=== PATIENT | female | born 1965 | race Caucasian/White ===

== ENCOUNTER → 2020-10-17 16:21 | Outpatient (CLI) | payer OTHER, SELFPAY ==
[2020-10-17 18:29] LABS: ALB/GLOB Ratio 0.7 RATIO (0.9-2.4); AST(SGOT) 54 U/L (15-37); Alanine Aminotransfer ALT/SGPT 25 U/L (13-56); Albumin, Serum 3.5 g/dL (3.2-5.0); Alkaline Phosphatase 170 U/L (45-117); Anion Gap 6 (5-15); BUN 11 mg/dL (7-18); Calcium,Total 9.3 mg/dL (8.5-10.1); Chloride 102 mmol/L (98-107); Creatinine, Serum 0.78 mg/dL (0.55-1.02); EST Glomerular Filtration Rate 80 mL/min (>60); Est Glom Filt Rate - Afr Amer 97 mL/min (>60); Globulin 4.8 g/dL (2.2-4.2); Glucose 146 mg/dL (74-106); Potassium 3.4 mmol/L (3.5-5.1); Protein, Total 8.3 g/dL (6.4-8.2); Sodium Level 139 mmol/L (136-145)
[2020-10-18 11:22] LABS: Hepatitis B Surface Antigen Non-Reactive (Nonreactive); Hepatitis C Antibody Non-Reactive (Nonreactive)
[2020-10-19 11:02] LABS: Ceruloplasmin 33.5 mg/dL (19.0-39.0)
[2020-10-19 16:08] LABS: ANTINUCLEAR ANTIBODIES DIRECT Negative (Negative)
[2020-10-19 17:06] LABS: Alpha Antitrypsin Serum 158 mg/dL (101-187); Anti-Mitochondrial AB 22.1 Units (0.0-20.0)
== END ==
PROVIDERS: PCP Family Medicine; Referring Provider Internal Medicine Gastroenterology; Visit Provider Internal Medicine Gastroenterology
DX: K72.90 Hepatic failure, unspecified without coma (principal); K76.0 Fatty (change of) liver, not elsewhere classified; K75.9 Inflammatory liver disease, unspecified
CPT/HCPCS: 36415; 80053; 82103; 82390; 83516; 86038; 86803; 87340

== ENCOUNTER → 2020-10-25 09:41 | Outpatient (CLI) | payer OTHER, SELFPAY ==
[2020-10-29 09:51] LABS: Anti-Mitochondrial AB <20.0 Units (0.0-20.0)
[2020-10-29 12:07] LABS: Albumin 3.3 g/dL (2.9-4.4); Alpha-1-Globulins 0.3 g/dL (0.0-0.4); Alpha-2-Globulins 0.9 g/dL (0.4-1.0); Gamma Globulin 1.1 g/dL (0.4-1.8); Immunoglobulin A 538 mg/dL (87-352); Immunoglobulin G 1255 mg/dL (586-1602); Immunoglobulin M 70 mg/dL (26-217)
== END ==
PROVIDERS: PCP Family Medicine; Referring Provider Internal Medicine Gastroenterology; Visit Provider Internal Medicine Gastroenterology
DX: K76.0 Fatty (change of) liver, not elsewhere classified (principal); K75.9 Inflammatory liver disease, unspecified
CPT/HCPCS: 36415; 82784; 83516; 84165; 86334

== ENCOUNTER → 2020-11-14 07:37 | Outpatient (CLI) | payer OTHER, SELFPAY ==
--- NOTE | 2020-11-14 07:40 | US_ITS ---
STUDY: ABDOMINAL ULTRASOUND - RIGHT UPPER QUADRANT REASON FOR VISIT: Female, 55 years old fatty liver TECHNIQUE: Ultrasound evaluation of the right upper quadrant was performed with real-time and static crawley-scale imaging. TECHNICAL QUALITY: Adequate. COMPARISON: None. FINDINGS: Liver: The liver measures 16.6 cm. There is increased echogenicity consistent with fatty infiltration. The bile ducts are within normal limits. There is hepatic color flow. The direction of portal flow is hepatopetal. There is no demonstrated mass lesion. Gallbladder: The patient is status post cholecystectomy. Common Bile Duct (C.B.D.): The common bile duct measures 5 mm. Pancreas: Normal size of the head, body and tail of the pancreas. There is normal echogenicity of the pancreas. There is no demonstrated pancreatic mass or cyst. Right Kidney: Normal size of the right kidney. The right kidney measures 10 cm x 6.3 cm x 4.2 cm. Normal renal cortex. The right cortex measures 1.2 cm. There is no demonstrated renal mass or cyst. There is no right hydronephrosis. IMPRESSION: Diffuse fatty infiltration of the liver. Status post cholecystectomy. Electronically Signed: Oscar Ramos, at 9:56 EST , Service support , STUDY: ABDOMINAL ULTRASOUND - ELASTOGRAPHY REASON FOR VISIT: Female, 55 years old. Fatty infiltration of the liver. TECHNIQUE: Liver stiffness measurements were obtained on a Ideagen 85 ultrasound machine using a CA 1-7 probe following the SRU guidelines. 3 measurements were obtained using a 2-D-SWE method. The IQR/M was 6.5 % suggesting a quality data set. TECHNICAL QUALITY: Adequate. COMPARISON: None. FINDINGS: Liver: Diffuse fatty infiltration of the liver. Median liver stiffness measured 5.9 kPa. US/Abdomen Limited IMPRESSION: Liver stiffness measures 5.9 kPa compatible with F2/F 3 Metavir score. Electronically Signed: Oscar Ramos, at 10:01 EST , Service support ,
== END ==
PROVIDERS: PCP Family Medicine; Referring Provider Internal Medicine Gastroenterology; Visit Provider Internal Medicine Gastroenterology
DX: K76.0 Fatty (change of) liver, not elsewhere classified (principal)
CPT/HCPCS: 76705; 76981

== ENCOUNTER → 2021-05-15 16:07 | Outpatient (CLI) | payer OTHER, SELFPAY ==
[2021-05-15 17:57] LABS: International Normalized Ratio 1.1; Prothrombin Time (Protime)PT. 13.5 SECONDS (11.7-14.9)
[2021-05-15 18:14] LABS: ALB/GLOB Ratio 0.8 RATIO (0.9-2.4); AST(SGOT) 75 U/L (15-37); Alanine Aminotransfer ALT/SGPT 31 U/L (13-56); Albumin, Serum 3.6 g/dL (3.2-5.0); Alkaline Phosphatase 143 U/L (45-117); Anion Gap 7 (5-15); BUN 17 mg/dL (7-18); BUN/Creat Ratio 20.1 RATIO (10-20); Calcium,Total 9.6 mg/dL (8.5-10.1); Chloride 103 mmol/L (98-107); Creatinine, Serum 0.84 mg/dL (0.55-1.02); EST Glomerular Filtration Rate 74 mL/min (>60); Est Glom Filt Rate - Afr Amer 89 mL/min (>60); GGTP 19 U/L (5-55); Globulin 4.5 g/dL (2.2-4.2); Glucose 93 mg/dL (74-106); Protein, Total 8.1 g/dL (6.4-8.2); Sodium Level 140 mmol/L (136-145)
== END ==
PROVIDERS: PCP Family Medicine; Referring Provider Internal Medicine Gastroenterology; Visit Provider Internal Medicine Gastroenterology
DX: K76.0 Fatty (change of) liver, not elsewhere classified (principal)
CPT/HCPCS: 36415; 80053; 82977; 85610

== ENCOUNTER → 2023-04-10 | Outpatient (CLI) | payer OTHER, SELFPAY ==
--- NOTE | 2023-04-10 07:35 | US_ITS ---
STUDY: ABDOMINAL ULTRASOUND - RIGHT UPPER QUADRANT; ELASTOGRAPHY REASON FOR VISIT: Female, 57 years old. Fatty infiltration of the liver. TECHNIQUE: Ultrasound evaluation of the right upper quadrant was performed with real-time and static crawley-scale imaging. Point quantification shear wave elastography was performed ([employer]). TECHNICAL QUALITY: Adequate. COMPARISON: Comparison is made with prior study dated November 14, 2020. FINDINGS: Liver: The liver measures 14.5 cm. There is increased echogenicity consistent with fatty infiltration. The bile ducts are within normal limits. There is hepatic color flow. The direction of portal flow is hepatopetal. There is no demonstrated mass lesion. Median liver stiffness measured 6.2 kPa. Gallbladder: The patient is status post cholecystectomy. Common Bile Duct (C.B.D.): The common bile duct measures 8.3 mm. Pancreas: There is normal echogenicity of the visualized pancreas. There is no demonstrated pancreatic mass or cyst. Right Kidney: Normal size of the right kidney. The right kidney measures 10.1 cm x 3.87 x 3.8 cm. Normal renal cortex. The right cortex measures 1.1 cm. There is no demonstrated renal mass or cyst. There is no right hydronephrosis. US/ABD Limited w/ Elastography IMPRESSION: 1. Liver stiffness measures 6.2 kPa compatible with F2-F3 (Mild to moderate liver fibrosis) Metavir score. Electronically Signed: Oscar Ramos MD at 14:30 EDT ,
== END | disposition home or self-care (01) ==
PROVIDERS: PCP Family Medicine; Referring Provider Internal Medicine Gastroenterology; Visit Provider Internal Medicine Gastroenterology
DX: K76.0 Fatty (change of) liver, not elsewhere classified (principal)
CPT/HCPCS: 76705; 76981